=== PATIENT | male | born 1950 | race Caucasian/White ===

== ENCOUNTER → 2016-11-19 | Outpatient (CLI) | payer OTHER ==
[~2016-11-19] MED LIST: FLM4 PO; MEDLIST; MERCAPTOPURINE; PROSTATE MED
== END | disposition home or self-care (01) ==
LOC: C.LABBFT 16:00
PROVIDERS: ATTEND Urology
DX: Z12.5 Encounter for screening for malignant neoplasm of prostate (principal)

== ENCOUNTER → 2017-02-13 | Outpatient (CLI) | payer OTHER ==
[2017-02-13 17:51] LABS: BASO ABS # 0.06 K/uL (0-0.2); COMPLETE YES; EOS % 5.6 %; HEMATOCRIT 41.9 % (42-52); IG% 0.2 %; LYMPH % 27.3 %; LYMPH ABS # 1.57 K/uL (1.2-3.4); MEAN CELL VOLUME 90.7 fL (80-100); MEAN CORPUSCULAR HGB CONC 34.1 g/dl (32-36); MEAN PLATELET VOLUME 10.4 fL (7.4-10.4); MONO % 5.7 %; NEUT % 60.2 %; PLATELET COUNT 245 K/uL (130-400); RED BLOOD COUNT 4.62 M/uL (4.7-6.1); WHITE BLOOD COUNT 5.75 K/uL (4.8-10.8)
[2017-02-13 18:22] LABS: ALT/SGPT 25 U/L (12-78); AST/SGOT 21 U/L (15-37); BLOOD UREA NITROGEN 12 mg/dl (7-18); BUN/CREATININE RATIO 12.4 (10-20); CALCIUM 8.8 mg/dl (8.5-10.1); CARBON DIOXIDE 26 mmol/L (21-32); CHLORIDE 107 mmol/L (98-107); CREATININE 0.98 mg/dl (0.60-1.40); GLUCOSE 95 mg/dl (70-99); SODIUM 140 mmol/L (136-145)
[2017-02-13 18:51] LABS: ALB/GLOB RATIO 0.9 (0.9-2); ALKALINE PHOSPHATASE 57 U/L (45-117); CHOLESTEROL 205 mg/dl (0-200); CHOLESTEROL/HDL RATIO 4.7; HDL CHOLESTEROL 44 mg/dl; LDL CHOLESTEROL CALCULATED 145 mg/dl; TRIGLYCERIDES 82 mg/dl (0-150); VERY LOW DENSITY LIPOPROT CALC 16 mg/dl
== END | disposition home or self-care (01) ==
LOC: C.LABBFT 12:14
PROVIDERS: ATTEND Internal Medicine
DX: K75.4 Autoimmune hepatitis (principal); E78.5 Hyperlipidemia, unspecified

== ENCOUNTER → 2017-02-19 | Outpatient (CLI) | payer OTHER ==
[2017-02-24 06:54] LABS: ALBUMIN 4.4 G/DL (3.8-4.8); ALPHA-2-GLOBULIN % 9.43 %; BETA GLOBULIN % 19.08 %; CREATININE UR 201 MG/DL (20-370); GAMMA GLOBULIN 1.5 G/DL (0.8-1.7); GAMMA GLOBULIN % 29.83 %; TOTAL PROTEIN 7.9 G/DL (6.2-8.3)
== END | disposition home or self-care (01) ==
LOC: C.LABBFT 11:37
PROVIDERS: ATTEND Internal Medicine
DX: D89.2 Hypergammaglobulinemia, unspecified (principal)

== ENCOUNTER → 2017-04-11 | Outpatient (CLI) | payer OTHER ==
[2017-04-11 19:02] LABS: MEAN CELL VOLUME 91.3 fL (80-100); MEAN CORPUSCULAR HGB CONC 32.9 g/dl (32-36); MEAN PLATELET VOLUME 10.3 fL (7.4-10.4); PLATELET COUNT 277 K/uL (130-400); WHITE BLOOD COUNT 8.11 K/uL (4.8-10.8)
[2017-04-11 19:24] LABS: BASO % 0.5 %; BASO ABS # 0.04 K/uL (0-0.2); COMPLETE YES; EOS % 4.8 %; IG% 0.1 %; LYMPH % 25.3 %; LYMPH ABS # 2.05 K/uL (1.2-3.4); MONO % 8.9 %; NEUT % 60.4 %
[2017-04-11 19:28] LABS: ALT/SGPT 30 U/L (12-78); AST/SGOT 22 U/L (15-37); BLOOD UREA NITROGEN 17 mg/dl (7-18); BUN/CREATININE RATIO 12.9 (10-20); CALCIUM 8.8 mg/dl (8.5-10.1); CARBON DIOXIDE 27 mmol/L (21-32); CHLORIDE 106 mmol/L (98-107); GLUCOSE 101 mg/dl (70-99); POTASSIUM 3.9 mmol/L (3.5-5.1); SODIUM 141 mmol/L (136-145)
[2017-04-11 19:30] LABS: ALB/GLOB RATIO 0.9 (0.9-2); ALKALINE PHOSPHATASE 67 U/L (45-117); C-REACTIVE PROTEIN < 0.29 mg/dl (0-0.29)
== END | disposition home or self-care (01) ==
LOC: C.LAB 18:22
PROVIDERS: ATTEND Registered Nurse
DX: K75.4 Autoimmune hepatitis (principal)

== ENCOUNTER → 2017-06-25 | Outpatient (CLI) | payer OTHER ==
[2017-06-25 14:59] LABS: CHOLESTEROL/HDL RATIO 3.1
== END | disposition home or self-care (01) ==
LOC: C.LAB 13:05
PROVIDERS: ATTEND Internal Medicine
DX: E78.5 Hyperlipidemia, unspecified (principal)

== ENCOUNTER → 2017-08-06 | Outpatient (CLI) | payer OTHER | END | disposition home or self-care (01) | LOC: C.PATHSPEC 17:52 | PROVIDERS: ATTEND Dentist Oral and Maxillofacial Surgery | DX: K13.0 Diseases of lips (principal) ==

== ENCOUNTER → 2017-10-14 | Outpatient (CLI) | payer OTHER ==
[2017-10-14 12:23] LABS: BASO % 0.5 %; BASO ABS # 0.04 K/uL (0-0.2); COMPLETE YES; EOS % 4.4 %; HEMATOCRIT 41.6 % (42-52); IG% 0.1 %; LYMPH % 24.9 %; LYMPH ABS # 1.86 K/uL (1.2-3.4); MEAN CELL VOLUME 93.7 fL (80-100); MEAN CORPUSCULAR HEMOGLOBIN 31.8 pg (25-34); MEAN CORPUSCULAR HGB CONC 33.9 g/dl (32-36); MEAN PLATELET VOLUME 10.5 fL (7.4-10.4); MONO % 9.1 %; PLATELET COUNT 249 K/uL (130-400); RED BLOOD COUNT 4.44 M/uL (4.7-6.1); WHITE BLOOD COUNT 7.48 K/uL (4.8-10.8)
[2017-10-14 13:00] LABS: ALT/SGPT 36 U/L (12-78); AST/SGOT 23 U/L (15-37); BLOOD UREA NITROGEN 20 mg/dl (7-18); BUN/CREATININE RATIO 19.5 (10-20); CALCIUM 9.2 mg/dl (8.5-10.1); CARBON DIOXIDE 28 mmol/L (21-32); CHLORIDE 104 mmol/L (98-107); CREATININE 1.03 mg/dl (0.60-1.40); GLUCOSE 85 mg/dl (70-99); POTASSIUM 4.2 mmol/L (3.5-5.1); SODIUM 137 mmol/L (136-145)
[2017-10-14 13:03] LABS: ALB/GLOB RATIO 0.9 (0.9-2); ALKALINE PHOSPHATASE 76 U/L (45-117)
== END | disposition home or self-care (01) ==
LOC: C.LAB 11:37
PROVIDERS: ATTEND Internal Medicine
DX: K75.4 Autoimmune hepatitis (principal)

== ENCOUNTER → 2017-11-19 | Outpatient (CLI) | payer OTHER | END | disposition home or self-care (01) | LOC: C.LAB 17:08 | PROVIDERS: ATTEND Urology | DX: N48.6 Induration penis plastica (principal); Z12.5 Encounter for screening for malignant neoplasm of prostate ==

== ENCOUNTER → 2018-01-02 | Outpatient (CLI) | payer OTHER ==
[2018-01-03 07:05] LABS: HEMOGLOBIN A1C 5.7 % (4.5-5.6)
== END | disposition home or self-care (01) ==
LOC: C.LAB 13:48
PROVIDERS: ATTEND Internal Medicine
DX: R73.9 Hyperglycemia, unspecified (principal)

== ENCOUNTER → 2018-05-29 | Outpatient (CLI) | payer OTHER ==
[2018-05-29 12:41] LABS: BASO % 0.5 %; BASO ABS # 0.03 K/uL (0-0.2); EOS % 6.3 %; EOS ABS # 0.38 K/uL (0-0.5); HEMATOCRIT 41.1 % (42-52); HEMOGLOBIN 14.3 g/dL (14.0-18.0); IG# 0.01 K/uL (0.00-0.02); LYMPH % 20.7 %; LYMPH ABS # 1.26 K/uL (1.2-3.4); MEAN CELL VOLUME 92.2 fL (80-100); MEAN CORPUSCULAR HEMOGLOBIN 32.1 pg (25-34); MEAN CORPUSCULAR HGB CONC 34.8 g/dl (32-36); MEAN PLATELET VOLUME 10.7 fL (7.4-10.4); MONO % 10.9 %; MONO ABS # 0.66 K/uL (0.11-0.59); NEUT % 61.4 %; NEUT ABS # 3.74 K/uL (1.4-6.5); PLATELET COUNT 222 K/uL (130-400); RED CELL DISTRIBUTION WIDTH CV 13.4 % (11.5-14.5); RED CELL DISTRIBUTION WIDTH SD 45.3 fL (36.4-46.3); WHITE BLOOD COUNT 6.08 K/uL (4.8-10.8)
[2018-05-29 12:51] LABS: ALBUMIN 3.9 gm/dl (3.4-5.0); ALKALINE PHOSPHATASE 59 U/L (45-117); ALT/SGPT 28 U/L (12-78); AST/SGOT 22 U/L (15-37); BLOOD UREA NITROGEN 24 mg/dl (7-18); CALCIUM 9.2 mg/dl (8.5-10.1); CARBON DIOXIDE 24 mmol/L (21-32); CREATININE 0.91 mg/dl (0.60-1.40); GLUCOSE 98 mg/dl (70-99); POTASSIUM 3.8 mmol/L (3.5-5.1); SODIUM 139 mmol/L (136-145); TOTAL PROTEIN 8.1 gm/dl (6.4-8.2)
== END | disposition home or self-care (01) ==
LOC: C.LAB 11:19
PROVIDERS: ATTEND Internal Medicine
DX: K75.4 Autoimmune hepatitis (principal)

== ENCOUNTER 2025-01-22 07:17 | Inpatient (IN) ==
--- NOTE | 2025-01-22 07:29 | Emergency Department Note ---
Impression & Plan Sepsis ADMIT ED Provider Note HPI: History obtained from patient. The patient is a 74-year-old gentleman with history of recent CABG at [facility] in [place] in December 2024, presents the emergency department with a chief complaint of weakness and chills. Patient states he woke up at approximately 4 AM feeling very cold and having the chills. Patient states that he thought that the symptoms would subside and therefore he stayed home and tried to ambulate and see if he would feel better but he did not and therefore he came to the ER to be assessed. Patient states that he is currently on antibiotic for UTI (urine culture from 01/16 grew pansensitive Pseudomonas) on arrival here to the ED the patient is hypotensive in the 90s systolic, heart rate is elevated in the 130s, patient is saturating at 89% on room air on arrival. Patient denies any chest pain or shortness of breath, denies any recent known fever. ROS: - Per HPI Differential Diagnosis: Sepsis, urinary tract infection, pneumonia, CHF exacerbation, pulmonary edema, pulmonary embolism, acute coronary syndrome, amongst other potential pathologies. *Outpatient medications and allergy history reviewed. 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 Patient was ordered greater than 30 cc/kg of IV fluid secondary to concern for sepsis with presenting vital signs of hypotension, tachycardia, and mild hypoxia. Patient was also placed on nasal cannula oxygen with good improvement in his presenting hypoxia. Lab work shows a mild leukocytosis at 10.81, hemoglobin is stable at 12.2, platelet count is normal, venous blood gas shows a pH slightly alkalotic at 7.48 with a pCO2 of 30, CMP does not show any evidence of any critical findings, magnesium is slightly low at 1.5, lactic acid is elevated at 3.0. Troponin is negative, BNP is mildly elevated at 156. Urinalysis was obtained and is consistent with possible infection, trace ketones are noted, there is also 2+ blood, 2+ leukocyte esterase, and pyuria. Will send for culture and the patient was treated prophylactically with IV cefepime over concern for possible sepsis. Viral panel testing was obtained and is negative. On my reassessment, the patient's tachycardia has down trended, his blood pressure is over 100 systolic, he otherwise appears to be in no acute distress. He does not appear to be tachypneic, capillary refills less than 3 seconds on reevaluation prior to admission. Patient does not have any cyanosis or findings of mottling of the skin prior to admission. I discussed all the above findings with the patient and with his at the bedside and they are in agreement for admission. Case was then discussed with the on-call hospitalist service for [facility] provider group, I discussed the case with the on-call midlevel provider and the patient was placed for admission to the service of Dr. Magaña. Consultants/Discussions held with other healthcare providers: -Hospitalist, Dr. Magaña Disposition discussion held by myself with: -Patient and patient's at the bedside * CRITICAL CARE TIME: ( 44 ) minutes -Stabilization of patient with vital signs concerning for sepsis (hypotension, tachycardia) requiring IV fluid resuscitation, stabilization of hypoxia with presenting oxygen saturation at 88% on room air requiring nasal cannula oxygen for correction, time spent at the bedside, interpretation of diagnostic studies, discussion with other healthcare providers and arrangement of admission. Diagnosis: 1. Urinary tract infection, acute 2. Leukocytosis, acute 3. Lactic acidosis, acute 4. Hypoxia, acute, nonspecific Disposition: Admission Renny Liang DO Emergency Medicine Past Med/Surg History Problem List (Updated 01/22/25 @ 12:59 by Renny Liang DO) Hypoxia Immunosuppressed status Hypomagnesemia Sepsis (Acute) Gross hematuria (Acute) Catheter-associated urinary tract infection (Acute) Abnormal stress echo Cerumen impaction Autoimmune hepatitis (2003) Actinic keratosis LVH (left ventricular hypertrophy) Peyronie's disease Hyperbilirubinemia (Acute) Nocturia (Acute) Elevated alkaline phosphatase level Elevated PSA Medical History Multi-vessel coronary artery stenosis Benign prostatic hyperplasia with urinary obstruction and other lower urinary tract symptoms Hypertension Pre-diabetes Hypergammaglobulinemia Erectile dysfunction Hyperlipidemia Lyme disease (07/2019) Achilles tendonitis (07/2019) Surgical History Hx of CABG S/P biopsy Liver S/P hemorrhoidectomy S/P anal fissurectomy Family History Father Coronary heart disease Hypertension Heart disease Hearing loss Sister Hypertension Mother Healthy adult Other No family history of adverse response to anesthesia No family history of bleeding disorder Denies family history of Prostate cancer Breast cancer Colorectal cancer Inflammatory bowel disease Colonic polyp Social History Smoking Status: Never smoker Second Hand Exposure: No; Do You Dip or Chew Tobacco: No; Hx Alcohol Use: No Hx Substance Use: No Preferred Language: Qatari Communication Ability: Effective Visual Impairment: No Limitations Hearing Ability: Normal Recreation Attendant Required: No Beliefs That Will Affect Care: None marital status: Current Living Situation: Spouse current occupational status: retired current occupation: [employer]-retired August 2020 Feels Safe at Home: Yes Childhood Exposure to Second-Hand Smoke: Yes Diet: regular caffeine: Yes Dental Care, Regularly: Yes Physical Activity Frequency: 5-6 Times per Week Seatbelt Use: always Sunscreen Use: No Assistive Devices: Glasses Allergies Allergies Allergy/AdvReac Type Severity Reaction Status Date / Time No Known Drug Allergies Allergy Verified 01/22/25 09:39 Home Meds Home Medications Medication Instructions Recorded Confirmed aspirin 81 mg tablet,delayed 81 mg PO QAM #30 tabs 04/28/19 01/22/25 release psyllium seed (sugar) oral powder 1 tbs PO DAILY 08/20/19 01/22/25 (Metamucil (sugar) oral powder) famotidine 20 mg tablet 20 mg PO QAM 01/04/25 01/22/25 finasteride 5 mg tablet 5 mg PO QAM 01/04/25 01/22/25 furosemide 40 mg tablet 40 mg PO QAM 01/04/25 01/22/25 metoprolol tartrate 25 mg tablet 12.5 mg PO BID 01/04/25 01/22/25 potassium chloride 10 mEq 20 meq PO QAM 01/04/25 01/22/25 tablet,extended release tamsulosin 0.4 mg capsule 0.4 mg PO BIDWMEAL 01/04/25 01/22/25 acetaminophen 500 mg tablet 500 mg PO BID 01/22/25 01/22/25 atorvastatin 40 mg tablet 80 mg PO QPM 01/22/25 01/22/25 mercaptopurine 50 mg tablet 50 mg PO QAM 01/22/25 01/22/25 Previous Rx's Medication Instructions Recorded levofloxacin 750 mg tablet 750 mg PO DAILY 7 days #7 tabs 01/16/25 Results & Data (ED) Vital Signs Vital Signs - 24 hr 01/22/25 07:06 01/22/25 07:06 01/22/25 07:06 Temperature 37.0 C Temperature Source Oral Pulse Rate 144 H Pulse Rate from SpO2 Sensor Respiratory Rate 22 Respiratory Depth Normal Blood Pressure 90/66 L Blood Pressure Mean 74 Pulse Oximetry 88 L 92 Oxygen Delivery Method Room Air Nasal Cannula Oxygen Flow Rate 2 Sepsis Recent Fever Within 48 Hours Yes Sepsis New/Unexplained Change in Mental Status No Sepsis Action Taken by Nursing Physician Notified 01/22/25 07:45 01/22/25 07:45 01/22/25 07:50 Temperature Temperature Source Pulse Rate 140 H 136 H Pulse Rate from SpO2 Sensor Respiratory Rate 27 H Respiratory Depth Blood Pressure 94/68 L 110/73 Blood Pressure Mean 76 84 Pulse Oximetry Oxygen Delivery Method Oxygen Flow Rate Sepsis Recent Fever Within 48 Hours Sepsis New/Unexplained Change in Mental Status Sepsis Action Taken by Nursing 01/22/25 07:57 01/22/25 08:03 01/22/25 08:15 Temperature Temperature Source Pulse Rate 130 H 127 H 125 H Pulse Rate from SpO2 Sensor 130 H 128 H 125 H Respiratory Rate 33 H 26 H 28 H Respiratory Depth Blood Pressure 110/73 118/72 111/69 Blood Pressure Mean 85 87 83 Pulse Oximetry 94 92 92 Oxygen Delivery Method Nasal Cannula Nasal Cannula Nasal Cannula Oxygen Flow Rate 2 2 2 Sepsis Recent Fever Within 48 Hours Sepsis New/Unexplained Change in Mental Status Sepsis Action Taken by Nursing 01/22/25 08:15 01/22/25 08:15 01/22/25 08:30 Temperature Temperature Source Pulse Rate 127 H Pulse Rate from SpO2 Sensor 126 H Respiratory Rate 24 Respiratory Depth Blood Pressure 111/69 111/69 94/68 L Blood Pressure Mean 73 73 76 Pulse Oximetry 93 Oxygen Delivery Method Nasal Cannula Oxygen Flow Rate 2 Sepsis Recent Fever Within 48 Hours Sepsis New/Unexplained Change in Mental Status Sepsis Action Taken by Nursing 01/22/25 08:33 01/22/25 09:51 01/22/25 10:03 Temperature Temperature Source Pulse Rate 125 H 115 H 113 H Pulse Rate from SpO2 Sensor 125 H 115 H 114 H Respiratory Rate 28 H 26 H 20 Respiratory Depth Blood Pressure 104/64 93/61 L 95/59 L Blood Pressure Mean 77 71 71 Pulse Oximetry 92 96 94 Oxygen Delivery Method Nasal Cannula Nasal Cannula Nasal Cannula Oxygen Flow Rate 2 2 2 Sepsis Recent Fever Within 48 Hours Sepsis New/Unexplained Change in Mental Status Sepsis Action Taken by Nursing 01/22/25 10:09 01/22/25 10:18 01/22/25 10:30 Temperature Temperature Source Pulse Rate 114 H 115 H 115 H Pulse Rate from SpO2 Sensor 114 H 115 H 113 H Respiratory Rate 25 H 21 24 Respiratory Depth Blood Pressure 98/66 L 98/66 L 95/58 L Blood Pressure Mean 76 76 70 Pulse Oximetry 95 95 94 Oxygen Delivery Method Nasal Cannula Nasal Cannula Nasal Cannula Oxygen Flow Rate 2 2 2 Sepsis Recent Fever Within 48 Hours Sepsis New/Unexplained Change in Mental Status Sepsis Action Taken by Nursing 01/22/25 10:33 01/22/25 10:48 01/22/25 10:54 Temperature Temperature Source Pulse Rate 115 H 114 H 110 H Pulse Rate from SpO2 Sensor 114 H 114 H 110 H Respiratory Rate 23 24 20 Respiratory Depth Blood Pressure 88/60 L 88/60 L 91/62 L Blood Pressure Mean 69 69 71 Pulse Oximetry 94 95 93 Oxygen Delivery Method Nasal Cannula Nasal Cannula Nasal Cannula Oxygen Flow Rate 2 2 2 Sepsis Recent Fever Within 48 Hours Sepsis New/Unexplained Change in Mental Status Sepsis Action Taken by Nursing 01/22/25 11:03 01/22/25 11:09 01/22/25 11:18 Temperature Temperature Source Pulse Rate 109 H 109 H 106 H Pulse Rate from SpO2 Sensor 109 H 109 H 107 H Respiratory Rate 19 21 20 Respiratory Depth Blood Pressure 91/62 L 99/64 L 99/64 L Blood Pressure Mean 71 75 75 Pulse Oximetry 92 94 95 Oxygen Delivery Method Nasal Cannula Nasal Cannula Nasal Cannula Oxygen Flow Rate 2 2 2 Sepsis Recent Fever Within 48 Hours Sepsis New/Unexplained Change in Mental Status Sepsis Action Taken by Nursing Laboratory Data 01/22/25 07:34 01/22/25 07:34 Lab Results 01/22/25 01/22/25 01/22/25 Range/Units 07:34 08:04 09:28 WBC 10.81 H (4.8-10.8) K/ul RBC 3.87 L (4.70-6.10) M/uL Hgb 12.2 L (14.0-18.0) g/dl Hct 35.8 L (42.0-52.0) % MCV 92.5 (80.0-100.0) fL MCH 31.5 (25.0-34.0) pg MCHC 34.1 (32.0-36.0) g/dL RDW Std Deviation 44.9 (36.4-46.3) fL RDW Coeff of Rosetta 13.3 (11.5-14.5) % Plt Count 278 (130-400) K/uL MPV 9.8 (9.4-12.4) fL Immature Gran % (Auto) 0.7 % Neut % (Auto) 91.7 % Lymph % (Auto) 5.1 % Coos % (Auto) 1.9 % Eos % (Auto) 0.2 % Baso % (Auto) 0.4 % Neut # (Auto) 9.92 H (1.40-6.50) K/uL Lymph # (Auto) 0.55 L (1.20-3.40) K/uL Coos # (Auto) 0.20 (0.11-0.59) K/uL Eos # (Auto) 0.02 (0.00-0.50) K/uL Baso # (Auto) 0.04 (0.00-0.20) K/uL Immature Gran # (Auto) 0.08 (0.01-0.20) K/uL Toxic Vacuolation 1+ Polychromasia 1+ PT 11.9 (9.0-12.0) Seconds INR 1.1 (0.9-1.1) VBG pH 7.48 H (7.36-7.41) VBG pCO2 30 L (38-50) mmHg VBG pO2 51 mmHg VBG HCO3 22 mmol/L VBG O2 Saturation 82.0 % VBG Base Excess -0.3 mEq/L Sodium 136 (136-145) mmol/L Potassium 3.8 (3.5-5.1) mmol/L Chloride 104 (98-107) mmol/L Carbon Dioxide 24 (21-32) mmol/L Anion Gap 8 (3-11) BUN 19 (6-23) mg/dl Creatinine 1.11 (0.6-1.4) mg/dl Est Cr Clr Drug Dosing 62.2 ml/min eGFR 69.68 BUN/Creatinine Ratio 17.1 (10-20) Glucose 114 H (70-99(Fasting)) mg/dl Lactate 3.0 H* 1.3 (0.4-2.0) mmol/L Calcium 9.1 (8.6-10.3) mg/dl Magnesium 1.5 L (1.7-2.4) mg/dl Total Bilirubin 0.7 (0.2-1.0) mg/dl Direct Bilirubin 0.2 (0-0.2) mg/dl AST 27 (13-39) U/L ALT 29 (7-52) U/L Alkaline Phosphatase 83 (34-104) U/L Troponin I High Sens 10.4 (0-20) pg/ml B-Natriuretic Peptide 156 H (0-100) pg/ml Total Protein 7.6 (6.0-8.3) gm/dl Albumin 3.5 (3.4-5.0) gm/dl Procalcitonin 0.14 (0-0.5) ng/ml Urine Color Yellow Urine Appearance Clear (Clear) Urine pH 5.0 (4.5-7.5) Ur Specific [address] 1.019 (1.000-1.030) Urine Protein 1+ H (Negative) Urine Glucose (UA) Negative (Negative) Urine Ketones Trace H (Negative) Urine Blood 2+ H (Negative) Urine Nitrite Negative (Negative) Urine Bilirubin Negative (Negative) Urine Urobilinogen Negative (Negative) Ur Leukocyte Esterase 2+ H (Negative) Urine WBC (Auto) 11-20 H (0-5) /hpf Urine RBC (Auto) >20 H (0-2) /hpf U Hyaline Cast (Auto) 11-20 H (0-2) /lpf U Epithel Cells (Auto) 0-2 (0-2) /hpf Urine Bacteria (Auto) 1+ H (None Seen) Hyaline Casts Present A (None Presnt) /lpf Granular Casts Present A (None Prsent) /lpf Adenovirus (PCR) Not Detected (NotDetected) B. pertussis DNA (PCR) Not Detected (NotDetected) B.parapertussis DNA PCR Not Detected (NotDetected) C. pneumoniae DNA (PCR) Not Detected (NotDetected) Coronavirus OC43 (PCR) Not Detected (NotDetected) Coronavirus HKU1 (PCR) Not Detected (NotDetected) Coronavirus 229E (PCR) Not Detected (NotDetected) SARS-CoV-2 (PCR) Not Detected (NotDetected) Coronavirus NL63 (PCR) Not Detected (NotDetected) Human Metapneumovir PCR Not Detected (NotDetected) Influenza Type A (PCR) Not Detected (NotDetected) Influenza Type B (PCR) Not Detected (NotDetected) M. pneumoniae (PCR) Not Detected (NotDetected) Parainfluenza 1 (PCR) Not Detected (NotDetected) Parainfluenza 2 (PCR) Not Detected (NotDetected) Parainfluenza 3 (PCR) Not Detected (NotDetected) Parainfluenza 4 (PCR) Not Detected (NotDetected) RSV (PCR) Not Detected (NotDetected) Entero/Rhino (PCR) Not Detected (NotDetected) Administered Medications Discontinued Medications Sodium Chloride (Nss) 1,000 mls @ 999 mls/hr IV .Q1H1M EVELIN Stop: 01/22/25 09:30 Last Infusion: 01/22/25 11:42 Dose: Infused Documented By: Admin: 01/22/25 08:51 Dose: 999 mls/hr Documented By: Infusion: 01/22/25 08:48 Dose: Infused Documented By: Admin: 01/22/25 07:47 Dose: 999 mls/hr Documented By: ARS Cefepime HCl (Maxipime 2000mg) 2,000 mg in 20 mls @ 5 mls/min IV NOW STA; Protocol Stop: 01/22/25 07:34 Last Admin: 01/22/25 07:47 Dose: 5 mls/min Documented By: BRITTANY Sodium Chloride (Nss) 1,000 mls @ 999 mls/hr IV .Q1H1M ONE Stop: 01/22/25 09:31 Last Infusion: 01/22/25 11:42 Dose: Infused Documented By: Admin: 01/22/25 09:25 Dose: 999 mls/hr Documented By: BRITTANY Magnesium Sulfate/Dextrose (Magnesium Sulfate / D5w) 1 gm in 100 mls @ 200 mls/hr IV Q30M EVELIN Stop: 01/22/25 10:21 Last Admin: 01/22/25 10:48 Dose: Not Given Documented By: Admin: 01/22/25 10:48 Dose: Not Given Documented By: BRITTANY Imaging Data Radiologist's Impression: Chest X-Ray 01/22/25 07:26 EXAM: XR chest 1V portable CLINICAL HISTORY: Sepsis TECHNIQUE: X-ray image of the chest obtained in 1 frontal projection. COMPARISON: Prior X-ray dated 09/10/2023 for comparison. FINDINGS: Pulmonary Parenchyma: Unchanged prominent bilateral parahilar markings. Unchanged basal atelectasis in left lower zone and interval resolution of similar changes in right lower zone. New finding of obscured left CP angle likely pleural effusion. Heart and Mediastinum: Heart size and shape are normal. No mediastinal widening or masses. No hilar or mediastinal lymphadenopathy. Bony Thorax: Sternotomy sutures. Spondylotic changes in thoracic spine. Bony thorax appears intact without fractures or deformities. Soft Tissues: Soft tissues overlying the chest wall are unremarkable. IMPRESSION: 1. Unchanged prominent bilateral parahilar markings likely congestion. 2. Unchanged basal atelectasis in left lower zone and interval resolution of similar changes in right lower zone. 3. New finding of obscured left CP angle likely pleural effusion. 4. Sternotomy sutures, new finding. Electronically signed by Sridhar Hook 01-22-2025 09:43 AM Discharge Plan Visit Data Chief Complaint: Urinary Symptoms ED Provider: Renny Liang Discharge Problem: Sepsis Forms Stand Alone Forms: [facility] [employer] Prescriptions Prescriptions: No Action aspirin 81 mg tablet,delayed release (DR/EC) 81 mg PO QAM Qty: 30 Metamucil (sugar) powder 1 tbs PO DAILY famotidine 20 mg tablet 20 mg PO QAM Patient Comments: CONFIRMED W/ PT AND ON [facility] DC SUMMARY 01/04/25 finasteride 5 mg tablet 5 mg PO QAM Patient Comments: CONFIRMED W/ PT AND ON [facility] DC SUMMARY 01/04/25 furosemide 40 mg tablet 40 mg PO QAM Patient Comments: CONFIRMED W/ PT AND ON [facility] DC SUMMARY 01/04/25 metoprolol tartrate 25 mg tablet 12.5 mg PO BID Patient Comments: CONFIRMED W/ PT AND ON [facility] DC SUMMARY 01/04/25 potassium chloride 10 mEq tablet extended release 20 meq PO QAM Patient Comments: CONFIRMED W/ PT AND ON [facility] DC SUMMARY 01/04/25 tamsulosin 0.4 mg capsule 0.4 mg PO BIDWMEAL Patient Comments: CONFIRMED W/ PT AND ON [facility] DC SUMMARY 01/04/25 levofloxacin 750 mg tablet 750 mg PO DAILY 7 Days Qty: 7 0RF Rx Instructions: Start Date 01/17/25 x7 day supply acetaminophen [Tylenol Ex Str Rapid Release] 500 mg Tablet 500 mg PO BID atorvastatin 40 mg tablet 80 mg PO QPM mercaptopurine 50 mg tablet 50 mg PO QAM Referrals Referrals: Efren Fernandez MD [Primary Care Provider] -
[2025-01-22 07:47] LABS: Base Excess VBG -0.3 mEq/L; HCO3 VBG 22 mmol/L; PCO2 VBG 30 mmHg (38-50); PO2 VBG 51 mmHg; pH VBG 7.48 (7.36-7.41)
[2025-01-22] MEDS: SODIUM CHLORIDE 0.9% 1,000 ML IV SCH (07:47)
[2025-01-22] MEDS: CEFEPIME 2000MG 2,000 MG/20 ML SYR IV STA (07:47)
[2025-01-22 07:53] LABS: Hematocrit (blood only) 35.8 % (42.0-52.0); Hemoglobin 12.2 g/dl (14.0-18.0); Mean Corpuscular Hemoglobin 31.5 pg (25.0-34.0); Mean Corpuscular Hgb Conc 34.1 g/dL (32.0-36.0); Mean Corpuscular Volume 92.5 fL (80.0-100.0); Mean Platelet Volume 9.8 fL (9.4-12.4); Platelet Count 278 K/uL (130-400); RDW Coefficient of Variation 13.3 % (11.5-14.5); RDW Standard Deviation 44.9 fL (36.4-46.3); Red Blood Count 3.87 M/uL (4.70-6.10); White Blood Count 10.81 K/ul (4.8-10.8)
[2025-01-22 08:09] LABS: Albumin Level 3.5 gm/dl (3.4-5.0); BUN Creatinine Ratio 17.1 (10-20); Bilirubin Direct 0.2 mg/dl (0-0.2); Bilirubin,Total 0.7 mg/dl (0.2-1.0); Calcium 9.1 mg/dl (8.6-10.3); Creatinine Clr Calc Pharmacy 62.2 ml/min; Magnesium 1.5 mg/dl (1.7-2.4); Potassium 3.8 mmol/L (3.5-5.1); Total Protein 7.6 gm/dl (6.0-8.3)
[2025-01-22 08:14] LABS: Basophils # (auto) 0.04 K/uL (0.00-0.20); Basophils % (auto) 0.4 %; Eosinophils # (auto) 0.02 K/uL (0.00-0.50); Eosinophils % (auto) 0.2 %; Immature Granulocytes # (auto) 0.08 K/uL (0.01-0.20); Immature Granulocytes % (auto) 0.7 %; Lymphocytes # (auto) 0.55 K/uL (1.20-3.40); Lymphocytes % (auto) 5.1 %; Monocytes % (auto) 1.9 %; Neutrophils # (auto) 9.92 K/uL (1.40-6.50); Neutrophils % (auto) 91.7 %; Polychromasia 1+; Toxic Vacuolation 1+; Troponin I High Sensitivity 10.4 pg/ml (0-20)
[2025-01-22 08:24] LABS: INR 1.1 (0.9-1.1); Prothrombin Time 11.9 Seconds (9.0-12.0)
[2025-01-22 09:06] LABS: Appearance Urine Clear (Clear); Bacteria Urine Automated 1+ (None Seen); Bilirubin Urine Negative (Negative); Blood Urine 2+ (Negative); Color Urine Yellow; Epithelial Cell Urine Auto 0-2 /hpf (0-2); Glucose Urine UA Negative (Negative); Granular Casts Urine Present /lpf (None Prsent); Hyaline Casts Urine Present /lpf (None Presnt); Ketones Urine Trace (Negative); Leukocyte Esterase Urine 2+ (Negative); Nitrite Urine Negative (Negative); Protein Urine 1+ (Negative); RBC Urine Automated >20 /hpf (0-2); Specific Gravity Urine 1.019 (1.000-1.030); Urobilinogen Urine Negative (Negative)
[2025-01-22 09:13] LABS: Adenovirus PCR Not Detected (NotDetected); Bordetella parapertussis PCR Not Detected (NotDetected); Bordetella pertussis PCR Not Detected (NotDetected); Chlamydia pneumoniae PCR Not Detected (NotDetected); Coronavirus 229E PCR Not Detected (NotDetected); Coronavirus CoV-2 (COVID19)PCR Not Detected (NotDetected); Coronavirus HKU1 PCR Not Detected (NotDetected); Coronavirus NL63 PCR Not Detected (NotDetected); Coronavirus OC43PCR Not Detected (NotDetected); Human Metapneumovirus PCR Not Detected (NotDetected); Influenza A PCR Not Detected (NotDetected); Influenza B PCR Not Detected (NotDetected); Mycoplasma pneumoniae PCR Not Detected (NotDetected); Parainfluenza Virus 1 PCR Not Detected (NotDetected); Parainfluenza Virus 2 PCR Not Detected (NotDetected); Parainfluenza Virus 3 PCR Not Detected (NotDetected); Parainfluenza Virus 4 PCR Not Detected (NotDetected); Respiratory Syncytial VirusPCR Not Detected (NotDetected); Rhinovirus/Enterovirus PCR Not Detected (NotDetected)
[2025-01-22] MEDS: SODIUM CHLORIDE 0.9% 1,000 ML IV ONE (09:25)
--- NOTE | 2025-01-22 09:44 | XRay Report ---
EXAM: XR chest 1V portable CLINICAL HISTORY: Sepsis TECHNIQUE: X-ray image of the chest obtained in 1 frontal projection. COMPARISON: Prior X-ray dated 09/10/2023 for comparison. FINDINGS: Pulmonary Parenchyma: Unchanged prominent bilateral parahilar markings. Unchanged basal atelectasis in left lower zone and interval resolution of similar changes in right lower zone. New finding of obscured left CP angle likely pleural effusion. Heart and Mediastinum: Heart size and shape are normal. No mediastinal widening or masses. No hilar or mediastinal lymphadenopathy. Bony Thorax: Sternotomy sutures. Spondylotic changes in thoracic spine. Bony thorax appears intact without fractures or deformities. Soft Tissues: Soft tissues overlying the chest wall are unremarkable. IMPRESSION: 1. Unchanged prominent bilateral parahilar markings likely congestion. 2. Unchanged basal atelectasis in left lower zone and interval resolution of similar changes in right lower zone. 3. New finding of obscured left CP angle likely pleural effusion. 4. Sternotomy sutures, new finding. Electronically signed by Sridhar Hook 01-22-2025 09:43 AM
[2025-01-22] MEDS: MAGNESIUM SULFATE / D5W 1 GM/100 ML BAG IV SCH (10:48)
--- NOTE | 2025-01-22 10:51 | History & Physical Report ---
Date of Service January 22, 2025 Assessment & Plan (1) Catheter-associated urinary tract infection: Plan: Acute, prior growth of pseudomonas (pansensitive) on 01/16 -Admit to monitored bed -VS per unit protocol -Heart healthy diet -OOB w/ assist -Pancultured including blood and urine cultures ordered in ED, pending -S/p 3L of NSS in ED, no further fluids at this time -Empiric cefepime 2g IV q12 (2) Hypoxia: Plan: Acute -SpO2 88% on room air -CXR demonstrates evidence of PVC, but does not appear grossly volume overloaded -Given tachycardia and tachypnea with dry cough, obtain CTA chest to exclude PE, will also further eval for possible developing PNA -Continue supplemental O2 to maintain pulse ox >92% -Hold PO Lasix today d/t hypotension/sepsis, can tentatively resume tomorrow (3) Sepsis: Plan: Acute secondary to CAUTI -s/p 3L of NSS -defer maintenance IVF for now. Keep MAP>65 -Hold Lasix and Lopressor today -pancultured as noted above, continue IV cefepime -APAP as needed for fever -repeat cbc in AM to trend mild leukocytosis -PCT WNL (4) Hypomagnesemia: Plan: Acute -mag 1.5, s/p mag sulfate 2g in the ER -repeat level in AM on 01/23 (5) Immunosuppressed status: Plan: Chronic -Continue mercaptopurine, on for autoimmune hepatitis, followed by Dr. Cox -could be related to his UTI treatment failure and also likely contributing to growth of pseudomonas Plan CAD s/p CABG- on lasix and metoprolol tartrate which will be held today, but resumed on 01/23 with parameters Urinary retention s/p montano with underlying BPH- continue tamsulosin and finasteride. Montano exchanged as noted above. F/u with urology. GERD- continue famotidine DVT ppx with Lovenox. AM cbc, bmp and mag ordered. Above plan of care has been d/w Dr. Robert Magaña who has also seen and evaluated this patient. Further orders to be implemented as clinically warranted by attending. History of Present Illness Chief Complaint: Chills, weakness Primary Care Provider: Efren Fernandez MD Damir is a 74 yo M with a pmhx of CAD s/p CABG on 12/31 at [facility] [address], urinary retention and BPH s/p montano insertion, GERD, and autoimmune hepatitis who presents to the ER accompanied by his c/o chills and generalized weakness. Patient has had 3 ER visits related to urinary issues following his CABG. On 01/03, he presented to the ER c/o inability to void. A montano was placed at that time. He was seen by urology (DANILO) on 01/14 with plans to perform a TOV the following week, but then presented to the ER on 01/16 due to urinary symptoms, at that time his montano was exchanged and a urine culture was obtained and yielded growth of pansensitive pseudomonas. He was placed on Levaquin and was to follow up with urology. Unfortunately, he has nearly completed his Levaquin, and overnight developed increased weakness, cold chills and rigors which prompted his to bring him to the ER this morning for evaluation. His ER w/u notes a mild leukocytosis of 10.81 with neutrophilic predominance. Renal function is preserved. Magnesium is low at 1.5, otherwise electrolytes are WNL. His HS trop is 10.4 and BNP is 156. His CXR notes some pulmonary congestion but is not grossly volume overloaded. His BP was soft, he was tachycardic and he was mildly hypoxic with a sat of 88% on room air. He was aggressively hydrated per sepsis guidelines with 30 cc/kg of NSS and he was empirically treated with a dose of cefepime 2g IV x1 based on prior urine culture. He has been pancultured and his BP and HR have improved, his MAP >65. He is currently on 2L of supplemental O2 via NC and his magnesium has been repleted in ED. He has been referred to hospital medicine team for admission. Allergies Allergy/AdvReac Type Severity Reaction Status Date / Time No Known Drug Allergies Allergy Verified 01/22/25 09:39 Home Medications Medication Instructions Recorded Confirmed Type aspirin 81 mg tablet,delayed 81 mg PO QAM #30 tabs 04/28/19 01/22/25 History release psyllium seed (sugar) oral powder 1 tbs PO DAILY 08/20/19 01/22/25 History (Metamucil (sugar) oral powder) famotidine 20 mg tablet 20 mg PO QAM 01/04/25 01/22/25 History finasteride 5 mg tablet 5 mg PO QAM 01/04/25 01/22/25 History furosemide 40 mg tablet 40 mg PO QAM 01/04/25 01/22/25 History metoprolol tartrate 25 mg tablet 12.5 mg PO BID 01/04/25 01/22/25 History potassium chloride 10 mEq 20 meq PO QAM 01/04/25 01/22/25 History tablet,extended release tamsulosin 0.4 mg capsule 0.4 mg PO BIDWMEAL 01/04/25 01/22/25 History levofloxacin 750 mg tablet 750 mg PO DAILY 7 days #7 tabs 01/16/25 01/22/25 Rx acetaminophen 500 mg tablet 500 mg PO BID 01/22/25 01/22/25 History atorvastatin 40 mg tablet 80 mg PO QPM 01/22/25 01/22/25 History mercaptopurine 50 mg tablet 50 mg PO QAM 01/22/25 01/22/25 History Past Med/Surg History Problem List (Updated 01/22/25 @ 12:59 by Renny Liang DO) Hypoxia Immunosuppressed status Hypomagnesemia Sepsis (Acute) Gross hematuria (Acute) Catheter-associated urinary tract infection (Acute) Abnormal stress echo Cerumen impaction Autoimmune hepatitis (2002) Actinic keratosis LVH (left ventricular hypertrophy) Peyronie's disease Hyperbilirubinemia (Acute) Nocturia (Acute) Elevated alkaline phosphatase level Elevated PSA Medical History Multi-vessel coronary artery stenosis Benign prostatic hyperplasia with urinary obstruction and other lower urinary tract symptoms Hypertension Pre-diabetes Hypergammaglobulinemia Erectile dysfunction Hyperlipidemia Lyme disease (07/2019) Achilles tendonitis (07/2019) Surgical History Hx of CABG S/P biopsy Liver S/P hemorrhoidectomy S/P anal fissurectomy Family History Father Coronary heart disease Hypertension Heart disease Hearing loss Sister Hypertension Mother Healthy adult Other No family history of adverse response to anesthesia No family history of bleeding disorder Denies family history of Prostate cancer Breast cancer Colorectal cancer Inflammatory bowel disease Colonic polyp Social History Smoking Status: Never smoker Second Hand Exposure: No; Do You Dip or Chew Tobacco: No; Hx Alcohol Use: No Hx Substance Use: No Preferred Language: Japanese Communication Ability: Effective Visual Impairment: No Limitations Hearing Ability: Normal Rate Manager Required: No Beliefs That Will Affect Care: None marital status: Current Living Situation: Spouse current occupational status: retired current occupation: [employer]-retired August 2020 Feels Safe at Home: Yes Childhood Exposure to Second-Hand Smoke: Yes Diet: regular caffeine: Yes Dental Care, Regularly: Yes Physical Activity Frequency: 5-6 Times per Week Seatbelt Use: always Sunscreen Use: No Assistive Devices: Glasses Review of Systems 2 Review of Systems: All systems reviewed and are unremarkable except as noted in HPI and below. +dry cough Denies fever, chills, fatigue, headache, nasal congestion, sore throat, chest pain, shortness of breath, palpitations, orthopnea, PND, abdominal pain, n/v/d, constipation, back pain, joint pain or swelling, easy bruising or bleeding, skin lesions or rashes. Physical Exam 2 Physical Exam: GENERAL: 74 yo well-nourished WM. No distress. EYES: EOMI. PERRLA. Anicteric. HENT: Moist mucous membranes. No cervical lymphadenopathy. LUNGS: Clear to auscultation bilaterally. No accessory muscle use. No W/R/R. CARDIOVASCULAR: Regular rate and rhythm. No M/G/R. No JVD. ABDOMEN: Soft, non-tender and non-distended. BS normoactive x 4 quad. : montano in place draining appropriately, -CVA tenderness. EXTREMITIES: No edema. Non-tender. Peripheral pulses +2/4. NEUROLOGIC: A&O x3. No focal neurological deficits. CN II-XII grossly intact. PSYCHIATRIC: Cooperative. Appropriate mood and affect. SKIN: Warm, dry, intact. Small dime size ulceration noted on medial aspect of left ankle. Results & Data Results & Data Vital Signs (Past 12 Hours) Vital Signs Temp Pulse Resp BP Pulse Ox O2 Del Method O2 Flow Rate 01/22/25 08:33 125 H 28 H 104/64 92 Nasal Cannula 2 01/22/25 08:30 127 H 24 94/68 L 93 Nasal Cannula 2 01/22/25 08:15 111/69 01/22/25 08:15 111/69 01/22/25 08:15 125 H 28 H 111/69 92 Nasal Cannula 2 01/22/25 08:03 127 H 26 H 118/72 92 Nasal Cannula 2 01/22/25 07:57 130 H 33 H 110/73 94 Nasal Cannula 2 01/22/25 07:50 136 H 01/22/25 07:45 110/73 01/22/25 07:45 140 H 27 H 94/68 L 01/22/25 07:06 92 Nasal Cannula 2 01/22/25 07:06 37.0 C 144 H 22 90/66 L 88 L Room Air Laboratory Results 01/22/25 07:34 01/22/25 07:34 Diagnostic Findings Chest X-Ray 01/22/25 07:26 EXAM: XR chest 1V portable CLINICAL HISTORY: Sepsis TECHNIQUE: X-ray image of the chest obtained in 1 frontal projection. COMPARISON: Prior X-ray dated 09/10/2023 for comparison. FINDINGS: Pulmonary Parenchyma: Unchanged prominent bilateral parahilar markings. Unchanged basal atelectasis in left lower zone and interval resolution of similar changes in right lower zone. New finding of obscured left CP angle likely pleural effusion. Heart and Mediastinum: Heart size and shape are normal. No mediastinal widening or masses. No hilar or mediastinal lymphadenopathy. Bony Thorax: Sternotomy sutures. Spondylotic changes in thoracic spine. Bony thorax appears intact without fractures or deformities. Soft Tissues: Soft tissues overlying the chest wall are unremarkable. IMPRESSION: 1. Unchanged prominent bilateral parahilar markings likely congestion. 2. Unchanged basal atelectasis in left lower zone and interval resolution of similar changes in right lower zone. 3. New finding of obscured left CP angle likely pleural effusion. 4. Sternotomy sutures, new finding. Electronically signed by Sridhar Hook 01-22-2025 09:43 AM Code Status & VTE Plan Code Status Full code - confirmed with patient and Supervising Physician Co-Signing Physician Notes I personally saw and examined the patient. I independently reviewed the labs, EKG, imaging, problem list, medication list, past medical history and family history. I verified all madden points and agree with Leah Watts PA-C with the following exceptions and/or additions: 74-year-old male presents to the ER following recent diagnosis of catheter associated urine tract infection currently on levofloxacin with pansensitive to Pseudomonas growing on urine cultures from January 14 and . Presents to the ER with rigors. Ongoing Montano catheter due to urine retention which occurred following his recent CABG history history of Dec 28. O/E HS RRR, no murmurs, Chest CTAB, Abdo SNT, no CVA tenderness, surgical scar appears to be healing and no concern for cellulitis A/P Sepsis / catheter associated UTI Unclear complete clinical picture as history suggestive of worsening CAUTI although on appropriate antibiotics and WBC improving. ?worse due to reduced appetite and furosemide use. Switch antibiotics to cefepime. Follow up repeat urine and blood cultures. Hold mercaptopurine (takes for autoimmune hepatitis). Monitor closely for alternative etiology causing hypotension and tachycardia. PG Care Time/CCT Total # of Minutes Spent Total Time Spent with Patient: Total time spent is greater than 50% in coordination of care (as documented) at patient's floor/unit and/or counseling patient: 80 minutes Coding Level of Care Code 85198 INT INP/OBS CARE 3/75MIN Diagnoses Catheter-associated urinary tract infection T83.511A; N39.0 Hypoxia R09.02 Sepsis A41.9 Hypomagnesemia E83.42 Immunosuppressed status D84.9
--- NOTE | 2025-01-22 10:53 | Electrocardiogram Report ---
Test Reason : Blood Pressure : */* mmHG Vent. Rate : 141 BPM Atrial Rate : 141 BPM P-R Int : 146 ms QRS Dur : 66 ms QT Int : 276 ms P-R-T Axes : 49 26 74 degrees QTcB Int : 422 ms Sinus tachycardia Poor R wave progression, consider anterior UT vs. lead placement vs. LVH Nonspecific ST abnormality Lateral leads Abnormal ECG When compared with ECG of 16-Nov-2024 15:03, Vent. rate has increased by [address] now depressed in Lateral leads Confirmed by Ruel Colon ([id number]) on 01/22/2025 10:52:56 AM Referred By: Confirmed By: Ruel Colon
[2025-01-22] MEDS ORDERED: ONDANSETRON INJ 2 MG/ML 2 ML VIAL IV PRN (20:27)
[2025-01-22] MEDS ORDERED: MAGNESIUM HYDROXIDE SUSP 30 ML UDC PO PRN (20:27)
[2025-01-22] MEDS ORDERED: ACETAMINOPHEN 325 MG TAB PO PRN (20:27)
[2025-01-22] MEDS ORDERED: ALUMINUM/MAGNESIUM SUSP 30 ML UDC PO PRN (20:27)
[2025-01-22] MEDS: ACETAMINOPHEN 500 MG TAB PO SCH (20:49)
[2025-01-22] MEDS: OPTIRAY 320 125ml IV ONE (21:05)
[2025-01-22] MEDS: CEFEPIME 2000MG 2,000 MG/20 ML SYR IV SCH (21:32)
[2025-01-22] MEDS: ATORVASTATIN 40 MG TAB PO SCH (21:33)
[2025-01-22] MEDS: TAMSULOSIN HCL 0.4 MG CAP PO SCH (21:34)
[2025-01-22] MEDS: PSYLLIUM or GUAR GUM FIBER 4GM PACKET PO SCH (21:56)
--- NOTE | 2025-01-23 01:35 | CT Scan Report ---
Exam(s): CTA CHEST IV Amt: 115 ml optiray 320 EXAM: CT Angiography Chest With Intravenous Contrast CLINICAL HISTORY: Evaluate for PE. TECHNIQUE: Axial computed tomographic angiography images of the chest with intravenous contrast. CTDI is 23 mGy and DLP is 787 mGy-cm. Automated exposure control was utilized for the study. A dose lowering technique was utilized adhering to the principles of ALARA. MIP reconstructed images were created and reviewed. COMPARISON: No relevant prior studies available. FINDINGS: Pulmonary arteries: Accounting for limitations with suboptimal heterogeneous enhancement of the pulmonary artery tree and respiratory artifact, there is no evidence for pulmonary embolism. Aorta: No acute findings. No thoracic aortic aneurysm. Great vessels of aortic arch: Normal variant aberrant right subclavian artery. Lungs: No focal airspace consolidation with curvilinear changes at the lung bases. Pleural space: Trace subcentimeter bilateral pleural effusions noted, left slightly greater than right. No pneumothorax. Heart: Cardiac chambers are normal in size. Trace pericardial effusion. Evidence of prior CABG with saphenous vein grafts in the CASTILLO graft. Bones/joints: No acute fracture. No dislocation. Soft tissues: Unremarkable. Lymph nodes: Unremarkable. No enlarged lymph nodes. IMPRESSION: 1. Accounting for limitations with suboptimal heterogeneous enhancement of the pulmonary artery tree and respiratory artifact, there is no evidence for pulmonary embolism. 2. No focal airspace consolidation with curvilinear changes at the lung bases. 3. Trace subcentimeter bilateral pleural effusions noted, left slightly greater than right. Electronically signed by: Royce Clark MD 01/23/25 01:34 AM
[2025-01-23 06:02] LABS: Basophils # (auto) 0.06 K/uL (0.00-0.20); Basophils % (auto) 0.5 %; Eosinophils # (auto) 0.15 K/uL (0.00-0.50); Eosinophils % (auto) 1.3 %; Hematocrit (blood only) 30.1 % (42.0-52.0); Hemoglobin 10.3 g/dl (14.0-18.0); Immature Granulocytes % (auto) 1.8 %; Lymphocytes % (auto) 9.7 %; Mean Corpuscular Hemoglobin 32.1 pg (25.0-34.0); Mean Corpuscular Hgb Conc 34.2 g/dL (32.0-36.0); Mean Corpuscular Volume 93.8 fL (80.0-100.0); Monocytes # (auto) 0.92 K/uL (0.11-0.59); Monocytes % (auto) 8.1 %; Neutrophils # (auto) 8.87 K/uL (1.40-6.50); Neutrophils % (auto) 78.6 %; Platelet Count 195 K/uL (130-400); RDW Coefficient of Variation 13.5 % (11.5-14.5); RDW Standard Deviation 46.7 fL (36.4-46.3); Red Blood Count 3.21 M/uL (4.70-6.10)
[2025-01-23 06:26] LABS: BUN Creatinine Ratio 18.6 (10-20); Calcium 8.3 mg/dl (8.6-10.3); Creatinine Clr Calc Pharmacy 80.3 ml/min; Magnesium 1.6 mg/dl (1.7-2.4); Potassium 3.8 mmol/L (3.5-5.1)
[2025-01-23] MEDS: MAGNESIUM SULFATE / D5W 1 GM/100 ML BAG IV SCH (08:41)
[2025-01-23] MEDS: ASPIRIN 81 MG ECTAB PO SCH (08:42)
[2025-01-23] MEDS: FAMOTIDINE 20 MG TAB PO SCH (08:44)
[2025-01-23] MEDS: FINASTERIDE 5 MG TAB PO SCH (08:44)
[2025-01-23] MEDS: POTASSIUM CHLORIDE CRTAB 20 MEQ TABCR PO SCH (08:44)
[2025-01-23] MEDS: ENOXAPARIN INJ 40 MG/0.4 ML SYR SQ SCH (08:46)
[2025-01-23] MEDS: METOPROLOL TARTRATE 25 MG TAB PO SCH (08:46)
[2025-01-23] MEDS ORDERED: PSYLLIUM or GUAR GUM FIBER 4GM PACKET PO SCH (09:00)
--- NOTE | 2025-01-23 14:34 | Hospitalist Progress Note ---
Date of Service January 23, 2025 Assessment & Plan (1) Catheter-associated urinary tract infection: Plan: Acute, prior growth of pseudomonas (pansensitive) on 01/16 - on levaquin as outpatient -Pancultured including blood and urine cultures ordered in ED, pending Not clearly worsening infection since his white blood count appears to be improving from prior ER and no recurrent fevers during current admission. If his urine and blood cultures remain negative at 48 hours I suspect his admission was more for hypotension in the setting of poor oral intake and newly started furosemide following his CABG. Continue to hold Lasix Mercaptopurine may be restarted if blood and urine cultures are negative at 48 hours and on detailed discussion with the patient he wishes to do a trial without catheter tomorrow if this is the case If urine and blood cultures show infection then his trial vet catheter and restart of mercaptopurine may need to be delayed (2) Hypoxia: Plan: Resolved, suspect secondary to hypotension and poor perfusion rather than respiratory illness although poor inspiratory effort may have been playing a part (3) Sepsis: Plan: Possible diagnosis secondary to catheter associated UTI Present on admission. Now resolved. (4) Hypomagnesemia: Plan: Repeat mag sulfate 2 g IV, repeat level in a.m. Likely to need to start on oral supplementation on discharge and follow-up with PCP regarding this (5) Immunosuppressed status: Plan: Continue to hold mercaptopurine pending blood and urine cultures as above Plan CAD s/p CABG-continue aspirin, atorvastatin, metoprolol (please see reduced hold parameters) Urinary retention s/p montano with underlying BPH- continue tamsulosin and finasteride. Montano exchanged as noted above. If urine and blood cultures negative tomorrow we will trial without catheter in the morning GERD- continue famotidine DVT ppx with Lovenox. AM cbc, bmp and mag ordered. Above plan of care has been d/w Dr. Robert Magaña who has also seen and evaluated this patient. Further orders to be implemented as clinically warranted by attending. Admission and Anticipated Discharge Date Admission Date: January 22, 2025 Subjective Patient feeling improved today. No abdominal pain or CVA tenderness. No fevers or chills overnight. He wishes to trial without catheter which appears to be reasonable tomorrow if urine and blood cultures are negative since this is when he was going to do a trial as an outpatient. Discussed risk of urine retention in the coming days if we do trial without catheter and he understands this. We discussed discontinuing furosemide for now as this is likely why he ended up in the emergency room with hypotension but this may need to be restarted if he goes back into heart failure. Physical Exam Respiratory: normal respiratory effort, lungs clear to auscultation Cardiovascular: RRR, no murmur, no edema Gastrointestinal (Abdomen): normal bowel sounds, soft, nontender, no hepatosplenomegaly Genitourinary: no CVA tenderness Results & Data Results & Data Vital Signs (Past 12 Hours) Vital Signs Temp Pulse Resp BP Pulse Ox O2 Del Method 01/23/25 11:55 36.5 C 69 18 113/69 95 Room Air 01/23/25 07:54 36.7 C 75 18 97/61 L 94 Room Air 01/23/25 03:33 36.7 C 92 H 20 101/64 93 Room Air PG Care Time/CCT Total # of Minutes Spent Total Time Spent with Patient: Total time spent is greater than 50% in coordination of care (as documented) at patient's floor/unit and/or counseling patient: Coding Level of Care Code 42149 SUB INP/OBS CARE 3/50MIN Diagnoses Catheter-associated urinary tract infection T83.511A; N39.0 Hypoxia R09.02 Sepsis A41.9 Hypomagnesemia E83.42 Immunosuppressed status D84.9
[2025-01-24 07:56] LABS: Basophils # (auto) 0.05 K/uL (0.00-0.20); Basophils % (auto) 0.6 %; Eosinophils # (auto) 0.28 K/uL (0.00-0.50); Eosinophils % (auto) 3.1 %; Hematocrit (blood only) 32.2 % (42.0-52.0); Immature Granulocytes # (auto) 0.09 K/uL (0.01-0.20); Lymphocytes # (auto) 1.47 K/uL (1.20-3.40); Lymphocytes % (auto) 16.2 %; Mean Corpuscular Hemoglobin 32.2 pg (25.0-34.0); Mean Corpuscular Hgb Conc 34.2 g/dL (32.0-36.0); Mean Corpuscular Volume 94.2 fL (80.0-100.0); Monocytes # (auto) 1.01 K/uL (0.11-0.59); Monocytes % (auto) 11.1 %; Neutrophils # (auto) 6.18 K/uL (1.40-6.50); Platelet Count 209 K/uL (130-400); RDW Coefficient of Variation 13.3 % (11.5-14.5); RDW Standard Deviation 46.2 fL (36.4-46.3); Red Blood Count 3.42 M/uL (4.70-6.10); White Blood Count 9.08 K/ul (4.8-10.8)
[2025-01-24 08:12] LABS: BUN Creatinine Ratio 13.1 (10-20); C Reactive Protein 4.57 mg/dl (0-0.5); Calcium 8.5 mg/dl (8.6-10.3); Creatinine Clr Calc Pharmacy 69.7 ml/min; Potassium 4.3 mmol/L (3.5-5.1)
[2025-01-24 10:57] VITALS: BP 120/77; RESP 20; TEMP 97.9; O2SAT 96
--- NOTE | 2025-01-24 13:30 | Discharge Summary ---
Discharge Summary Date of Service January 24, 2025 Principal Dx & Hospital Course #1 = Principal Diagnosis (1) Catheter-associated urinary tract infection: Resolved (2) Hypoxia: Resolved (3) Sepsis: Ruled out (4) Hypomagnesemia: (5) Immunosuppressed status: Plan Damir Manning is a 74-year-old male admitted to [facility] from January 22 to 2024 due to rigors. Initial concern for ongoing Pseudomonas catheter associated UTI with developing sepsis although subsequent urine and blood cultures were negative. Suspect his presentation was therefore due to hypotension in the setting of recent Pseudomonas catheter associated urine tract infection (successfully being treated with Levaquin), dehydration and Lasix use. Lasix has been discontinued along with potassium supplementation. He has now completed a course of antibiotics for his previously diagnosed Pseudomonas catheter associated UTI and no longer require further antibiotics (Levaquin given as outpatient and finished course with cefepime as inpatient). Montano catheter was removed on discharge. He passed trial without catheter with 162ml post void residual. He will follow up with urology for management of his benign prostatic hypertrophy. He was advised to call the urology office if he feels his bladder filling back up. He was started on magnesium supplementation due to low levels. This is likely due to Lasix use and may not be needed long-term. Recommend he follows up with his PCP regarding this.. Notes For Next Care Provider Order follow-up magnesium level in 2 to 4 weeks Monitor for urine retention has Montano catheter removed on day of discharge but passed trial without catheter with postvoid residual 162 mL Monitor for heart failure with stopping Lasix although I suspect he may have required this temporarily just in the postoperative period He did not fail Levaquin therefore this is reasonable to restart if his urinary infection symptoms recur Medication Changes From Visit Furosemide discontinued due to low blood pressure and dehydration Potassium supplementation discontinued as no longer requires this when not on furosemide Antibiotics discontinued as completed course for catheter associated UTI Magnesium oxide supplementation started due to low levels Admission HPI Per Admitting Provider Damir is a 74 yo M with a pmhx of CAD s/p CABG on 12/31 at [facility], ur inary retention and BPH s/p montano insertion, GERD, and autoimmune hepatitis who presents to the ER accompanied by his c/o chills and generalized weakness. Patient has had 3 ER visits related to urinary issues following his CABG. On 01/03, he presented to the ER c/o inability to void. A montano was placed at that time. He was seen by urology (DANILO) on 01/14 with plans to perform a TOV the following week, but then presented to the ER on 01/16 due to urinary symptoms, at that time his montano was exchanged and a urine culture was obtained and yielded growth of pansensitive pseudomonas. He was placed on Levaquin and was to follow up with urology. Unfortunately, he has nearly completed his Levaquin, and overnight developed increased weakness, cold chills and rigors which prompted his to bring him to the ER this morning for evaluation. His ER w/u notes a mild leukocytosis of 10.81 with neutrophilic predominance. Renal function is preserved. Magnesium is low at 1.5, otherwise electrolytes are WNL. His HS trop is 10.4 and BNP is 156. His CXR notes some pulmonary congestion but is not grossly volume overloaded. His BP was soft, he was tachycardic and he was mildly hypoxic with a sat of 88% on room air. He was aggressively hydrated per sepsis guidelines with 30 cc/kg of NSS and he was empirically treated with a dose of cefepime 2g IV x1 based on prior urine culture. He has been pancultured and his BP and HR have improved, his MAP >65. He is currently on 2L of supplemental O2 via NC and his magnesium has been repleted in ED. He has been referred to hospital medicine team for admission. Discharge Exam Respiratory normal respiratory effort, lungs clear to auscultation Cardiovascular RRR, no murmur, no edema Gastrointestinal (Abdomen) normal bowel sounds, soft, nontender, no hepatosplenomegaly Genitourinary no CVA tenderness Discharge Plan Discharge Items Patient Disposition: Home - Self-Care Reason For Visit: UTI,SEPSIS Discharge Diagnosis: Hypotension secondary to UTI, dehydration and Lasix use Activity: Resume your previous activity Non-emergency contact: Primary Care Provider Call non-emergency contact if: you have any medication questions and your symptoms worsen Follow-up/Referrals: Efren Fernandez MD [Primary Care Provider] - Diet: Heart Healthy Addtl Attending Provider Instructions: You were admitted to [facility] from January 22 to 2024 due to rigors. Initial concern for ongoing Pseudomonas catheter associated UTI with developing sepsis although subsequent urine and blood cultures were negative. Suspect your presentation was therefore due to low blood pressure in the setting of recent urine infection, dehydration and Lasix use. Lasix has been discontinued along with potassium supplementation. You have now completed a course of antibiotics for your previously diagnosed Pseudomonas catheter associated UTI and no longer require further antibiotics. Montano catheter was removed on discharge. If you feel increasing pressure or decreased flow please return to the emergency room as this may need to be reinserted. Please follow-up with urology as previously planned for cystoscopy. You were started on magnesium supplementation due to low levels. This is likely due to Lasix use and may not be needed long-term. Please follow-up with your primary care physician with repeat levels to determine if this can be discontinued. Pending Studies at Discharge: No Stand-Alone Forms: My [facility], Smoking Cessation Medications and DC Order Prescriptions: New magnesium oxide 400 mg magnesium tablet 400 mg PO DAILY Qty: 30 0RF Continued aspirin 81 mg tablet,delayed release (DR/EC) 81 mg PO QAM Qty: 30 Metamucil (sugar) powder 1 tbs PO DAILY famotidine 20 mg tablet 20 mg PO QAM Patient Comments: CONFIRMED W/ PT AND ON [facility] [place] DC SUMMARY 01/04/25 finasteride 5 mg tablet 5 mg PO QAM Patient Comments: CONFIRMED W/ PT AND ON [facility] [place] DC SUMMARY 01/04/25 metoprolol tartrate 25 mg tablet 12.5 mg PO BID Patient Comments: CONFIRMED W/ PT AND ON [facility] [place] DC SUMMARY 01/04/25 tamsulosin 0.4 mg capsule 0.4 mg PO BIDWMEAL Patient Comments: CONFIRMED W/ PT AND ON [facility] [place] DC SUMMARY 01/04/25 acetaminophen 500 mg Tablet 500 mg PO BID atorvastatin 40 mg tablet 80 mg PO QPM mercaptopurine 50 mg tablet 50 mg PO QAM Discontinued furosemide 40 mg tablet 40 mg PO QAM Patient Comments: CONFIRMED W/ PT AND ON [facility] [place] DC SUMMARY 01/04/25 potassium chloride 10 mEq tablet extended release 20 meq PO QAM Patient Comments: CONFIRMED W/ PT AND ON [facility] [place] DC SUMMARY 01/04/25 levofloxacin 750 mg tablet 750 mg PO DAILY 7 Days Qty: 7 0RF Rx Instructions: Start Date 01/17/25 x7 day supply Discharge Orders: Discharge Order (Routine); Ordered 01/24/25 Ordered By: Robert Magaña Admission Data Admit Date/Time: 01/22/25 10:08 Attending Provider: Robert Magaña Admit Provider: Robert Magaña Primary Care Provider: Efren Fernandez Other Providers: Robert Magaña Hospital Stay Data Consultations 01/22/25 09:52 ED Decision to Admit Stat Diagnostic Imagining Performed 01/22/25 20:27 CT angio chest PE protocol Urgent Pending Results Patient Have Any Pending Studies at Discharge: No Discharge Instructions Given to Patient (Per Discharging Provider) You were admitted to [facility] from January 22 to 2024 due to rigors. Initial concern for ongoing Pseudomonas catheter associated UTI with developing sepsis although subsequent urine and blood cultures were negative. S uspect your presentation was therefore due to low blood pressure in the setting of recent urine infection, dehydration and Lasix use. Lasix has been discontinued along with potassium supplementation. You have now completed a course of antibiotics for your previously diagnosed Pseudomonas catheter associated UTI and no longer require further antibiotics. Montano catheter was removed on discharge. If you feel increasing pressure or decreased flow please return to the emergency room as this may need to be reinserted. Please follow-up with urology as previously planned for cystoscopy. You were started on magnesium supplementation due to low levels. This is likely due to Lasix use and may not be needed long-term. Please follow-up with your primary care physician with repeat levels to determine if this can be discontinued. Total Time Total Time Spent Total Time Spent (In Minutes): 40 Coding Level of Care Code 47749 INP/OBS DISCH >30 MIN Diagnoses Catheter-associated urinary tract infection T83.511A; N39.0 Hypoxia R09.02 Sepsis A41.9 Hypomagnesemia E83.42 Immunosuppressed status D84.9
[2025-01-24 14:37] VITALS: PULSE 91
[2025-01-24] MEDS ORDERED: MAGNESIUM OXIDE 400 MG TAB PO SCH (21:00)
== END 2025-01-24 16:00 | disposition home or self-care (01) | DRG 698 ==
LOC: ED 07:17 → 4W 10:08